=== PATIENT | female | born 1980 | race Caucasian/White ===

== ENCOUNTER 2017-02-22 15:39 | Observation (INO) ==
[2017-02-22] MEDS ORDERED: *HR* HYDROmorphone 2 MG/ML SYRINGE IVP ONE ×2 (16:17→17:12)
--- NOTE | 2017-02-22 16:21 | Emergency Department Note ---
Disposition Clinical Impression: Medication reaction, Metastatic breast cancer Intractable vomiting Qualifiers: Vomiting type: unspecified Nausea presence: with nausea Qualified Code(s): R11.2 - Nausea with vomiting, unspecified Disposition: Admitted As Inpatient Condition: Good Referrals: Bandar Love MD [Primary Care Provider] - Forms: ED Satisfaction Letter Time of Disposition: 19:07 Nausea/Vomiting/Diarrhea HPI - General Chief complaint: ED Nausea/Vomiting/Diarrhea Stated complaint: worsening pain/nausea /cancer pt Time Seen by Provider: 02/22/17 16:15 Source: EMS Mode of arrival: EMS Limitations: no limitations Nursing Notes Reviewed: Yes Vital Signs Reviewed: Yes - History of Present Illness HPI Narrative: 36-year-old white female with metastatic breast cancer who received chemotherapy 2 days ago. Following her chemotherapy she developed diffuse pain , nausea, and vomiting. She had a similar reaction with her previous chemotherapy. She was seen at [facility] emergency department yesterday. She was treated for her pain and nausea. She was discharged home after her symptoms were improved. She states after going back home her symptoms worsened again. She states the Zofran is not helping with her nausea. She has a headache. She has a history of similar type headaches. She has intractable nausea, but no abdominal pain. She has diffuse body aches. Pt Subjective Complaint: nausea, vomiting, other (Body aches) Onset (ago): day(s) (2) Description of emesis: food contents (Numerous) Associated Abdominal Pain: No Context: other (Chemotherapy) Associated symptoms: Reports: headaches - Related Data Home Medications Medication Instructions Recorded Confirmed lamoTRIgine [Lamictal] 250 mg PO DAILY 05/13/15 02/22/17 valACYclovir [Valtrex] 500 mg PO DAILY PRN 05/18/16 02/22/17 Promethazine [Phenergan] 25 mg RC Q6HR PRN 06/09/16 02/22/17 Diphenoxylate/Atropine [Lomotil 1 - 2 tab PO QID PRN 10/04/16 02/22/17 2.5 mg/0.025 mg] Lisdexamfetamine Dimesylate 60 mg PO DAILY 12/04/16 02/22/17 [Vyvanse] Topiramate [Topamax] 50 mg PO HS 12/04/16 02/22/17 clonazePAM [Clonazepam] 1 mg PO BID 12/04/16 02/22/17 HYDROmorphone [Dilaudid] 4 mg PO Q3H PRN 12/16/16 02/22/17 Acyclovir [Zovirax] 400 mg PO BID 01/20/17 02/22/17 OLANZapine [Zyprexa] 5 mg PO BID PRN 01/20/17 02/22/17 Omeprazole [PriLOSEC] 40 mg PO DAILY 01/20/17 02/22/17 Dexamethasone 2 mg PO AD 01/31/17 02/22/17 Loperamide HCl [Anti-Diarrheal] 2 mg PO Q2H PRN 01/31/17 02/22/17 Previous Rx's Medication Instructions Recorded Albuterol Sulfate [Albuterol 2 puff IH Q6HR PRN #1 inhaler 08/01/16 Inhaler] SUMAtriptan Succinate [Imitrex] 100 mg PO AD PRN #9 tablet 09/23/16 Loratadine [Claritin] 10 mg PO DAILY #30 tablet 09/26/16 Oxycodone HCl [Roxicodone 30 MG 30 mg PO Q4H PRN #150 tab 10/07/16 Immed Release] Sucralfate [Carafate] 1 gm PO TID #90 tablet 10/07/16 Furosemide [Lasix] 20 mg PO DAILY #3 tablet 12/16/16 Allergies Allergy/AdvReac Type Severity Reaction Status Date / Time vancomycin Allergy Intermediate Rash Verified 02/21/17 10:12 aspirin Allergy Palpitation Verified 02/21/17 10:12 s hydrocodone Allergy Itching Verified 02/21/17 10:12 Iodinated Contrast Media - Allergy Swelling Verified 02/21/17 10:12 Oral and of Lip/Tongue/Throat meperidine [From Demerol] Allergy Swelling Verified 02/21/17 10:12 of Lip/Tongue/Throat prochlorperazine Allergy Palpitation Verified 02/21/17 10:12 [From Compazine] s Trillinex Allergy Seizure Uncoded 02/21/17 10:12 All systems ED: reviewed and negative except as stated. Constitutional: Denies: fever, chills Eyes: Denies: vision change ENT ED: Denies: ear pain, throat pain Cardiovascular: Denies: chest pain Respiratory: Denies: cough, dyspnea Gastrointestinal: Reports: nausea, vomiting. Denies: abdominal pain, diarrhea Genitourinary: Denies: urgency, dysuria, frequency Musculoskeletal: Reports: as per HPI (Aching all over) Neurological: Reports: headache. Denies: weakness, numbness, paresthesias Past Medical History - Past Medical History Medical history: Reports: arthritis, asthma, cancer, GERD, kidney stones, malignancy, migraine, seizures, syncope, other Surgical history: Reports: appendectomy, breast surgery (Bilateral mastectomies. ), cancer surgery, ureteral stent, other Psychiatric history: Reports: anxiety, ADHD, bipolar, depression, other MOTORCYCLE TECHNICIAN history: Reports: no MOTORCYCLE TECHNICIAN history - Social History Smoking Status: Current every day smoker Smokeless Tobacco Status: No Alcohol use: Reports: none Drug use: Reports: none Physical Exam - General Limitations: no limitations General appearance: alert, in no apparent distress - Head Head exam: atraumatic, normocephalic - Eye Eye exam: Present: PERRL, EOMI. Absent: scleral icterus, conjunctival injection - ENT ENT exam: normal oropharynx, mucous membranes moist, TM's normal bilaterally - Neck Neck exam: Present: normal inspection, full ROM, trachea midline. Absent: tenderness, meningismus, lymphadenopathy - Respiratory Respiratory exam: Present: normal lung sounds bilaterally. Absent: respiratory distress, wheezes - Cardiovascular Cardiovascular exam: Present: regular rate, normal rhythm, normal heart sounds - Abdominal Exam Abdominal exam: Present: soft, Non-Tender, normal bowel sounds. Absent: organomegaly, mass - Extremities Exam Extremities exam: Present: normal inspection, full ROM, normal capillary refill. Absent: tenderness, pedal edema - Back Exam Back exam: Absent: CVA tenderness (R), CVA tenderness (L) - Neurological Exam Neurological exam: Present: alert, oriented X3, CN II-XII intact. Absent: motor sensory deficit - Psychiatric Psychiatric exam: Present: anxious - Skin Skin exam: Present: warm, dry, intact, normal color. Absent: cyanosis, diaphoresis Course - Reevaluation(s) Reevaluation #1: States pain and nausea are no better. Time: 17:13 Reevaluation #2: Nausea is improved. Pain is slightly improved. We discussed treatment options. She feels uncomfortable going home. She would prefer to be admitted here. She does not want to be transferred to possible. I spoke with Dr. Piedra. He is okay with observation admission here. Time: 19:06 Vital Signs Temperature 98.1 F 02/22/17 15:44 Pulse Rate 83 02/22/17 15:44 Respiratory Rate 18 02/22/17 15:44 Blood Pressure 107/48 02/22/17 15:44 O2 Sat by Pulse Oximetry 100 02/22/17 15:44 Temperature 98.1 F 02/22/17 15:44 Pulse Rate 90 02/22/17 17:37 Respiratory Rate 18 02/22/17 17:37 Blood Pressure 123/77 02/22/17 17:37 O2 Sat by Pulse Oximetry 99 02/22/17 17:37 Oxygen Delivery Oxygen Delivery Room Air Nausea/Vomiting/Diarrhea - MDM Narrative Medical decision making narrative: Differential includes but is not limited to medication reaction, viral syndrome , bacterial infection, dehydration. The patient has had a similar reaction in the past her chemotherapy. She is improved but does not feel comfortable being discharged. She will require short -term stay for continued control of her nausea, vomiting, and diffuse pain. She would prefer to be admitted here if possible. I spoke with Dr. Piedra. He is willing to accept the patient for observation admission here at [facility]. - Lab Data Lab results reviewed: Yes I reviewed the patient's lab results. Result diagrams: 02/22/17 16:15 02/22/17 16:15 Lab Results 02/22/17 02/22/17 Range/Units 16:15 16:15 WBC 9.9 (4.3-11.1) K/mcL RBC 3.63 L (3.82-4.97) M/mcL Hgb 11.0 L (11.5-15.4) g/dL Hct 34.0 L (35.3-44.9) % MCV 93.7 (83.0-100.0) fL MCH 30.3 (28.0-33.3) pg MCHC 32.4 (31.6-35.5) g/dL RDW 14.1 (11.5-14.5) % Plt Count 416 H (140-400) K/mcL MPV 9.0 L (9.4-12.4) fL Immature Gran % 0.8 (0-4) % Seg Neutrophils % 51.0 % Lymphocytes % 36.7 % Monocytes % 9.3 % Eosinophils % 1.7 % Basophils % 0.5 % Neutrophils # 5.1 (1.6-8.9) K/mcL Lymphocytes # 3.6 (0.6-4.6) K/mcL Monocytes # 0.9 (0.0-1.3) K/mcL Eosinophils # 0.2 (0.0-0.6) K/mcL Basophils # 0.1 (0.0-0.2) K/mcL Sodium 141 (136-145) mEq/L Potassium 4.0 (3.5-4.5) mEq/L Chloride 110 H (98-109) mEq/L Carbon Dioxide 24 (19-29) mEq/L BUN 16 (7-20) mg/dL Creatinine 0.79 (0.57-1.11) mg/dL Est GFR ( Amer) > 60 (> 60) Est GFR (Non-Af Amer) > 60 (> 60) BUN/Creatinine Ratio 20 (6-26) Glucose 88 (70-99) mg/dL Calculated Osmolality 293 (280-300) Calcium 8.8 (8.6-10.8) mg/dL Total Bilirubin < 0.1 L (0.2-1.2) mg/dL AST 11 (5-34) Units/L ALT 9 (0-55) Units/L Alkaline Phosphatase 57 (38-126) Units/L Serum Total Protein 6.9 (6.0-8.3) g/dL Albumin 2.9 L (3.5-5.0) g/dL Globulin 4.0 H (2.4-3.5) g/dL Albumin/Globulin Ratio 0.7 L (1.1-2.2)
[2017-02-22 16:25] LABS: Basophils # 0.1 K/mcL (0.0-0.2); Basophils % 0.5 %; Eosinophils # 0.2 K/mcL (0.0-0.6); Eosinophils % 1.7 %; Immature Granulocytes % 0.8 % (0-4); Lymphocytes # 3.6 K/mcL (0.6-4.6); Lymphocytes % 36.7 %; Mean Corpuscular HGB Conc 32.4 g/dL (31.6-35.5); Mean Corpuscular Hemoglobin 30.3 pg (28.0-33.3); Mean Corpuscular Volume 93.7 fL (83.0-100.0); Monocytes # 0.9 K/mcL (0.0-1.3); Monocytes % 9.3 %; Neutrophils # 5.1 K/mcL (1.6-8.9); Platelet Count 416 K/mcL (140-400); Red Blood Count 3.63 M/mcL (3.82-4.97); Red Cell Distribution Width 14.1 % (11.5-14.5)
[2017-02-22] MEDS ORDERED: 0.9 % Sodium Chloride 1,000 ML IVC SCH ×2 (16:30→20:36)
[2017-02-22] MEDS ORDERED: SODIUM CHLORIDE 0.9% IVPB ONE (16:30)
[2017-02-22] MEDS ORDERED: PROMETHAZINE IVPB ONE (16:30)
[2017-02-22 16:40] LABS: Alanine Aminotransferase 9 Units/L (0-55); Albumin 2.9 g/dL (3.5-5.0); Albumin/Globulin Ratio 0.7 (1.1-2.2); Alkaline Phosphatase 57 Units/L (38-126); Aspartate Amino Transferase 11 Units/L (5-34); BUN/Creatinine Ratio 20 (6-26); Bilirubin,Total < 0.1 mg/dL (0.2-1.2); Blood Urea Nitrogen 16 mg/dL (7-20); Calcium 8.8 mg/dL (8.6-10.8); Carbon Dioxide 24 mEq/L (19-29); Chloride 110 mEq/L (98-109); Glucose 88 mg/dL (70-99); Osmolality,Calculated 293 (280-300); Sodium 141 mEq/L (136-145); Total Protein 6.9 g/dL (6.0-8.3); eGFR For African Americans > 60 (> 60); eGFR For Non-African Americans > 60 (> 60)
[2017-02-22] MEDS ORDERED: *HR* Promethazine 25 MG/ML VIAL IVP ONE (17:12)
[2017-02-22] MEDS ORDERED: *HR* HYDROmorphone (PF) 1 MG/ML SYRINGE IVP ONE (18:57)
[2017-02-22] MEDS ORDERED: Naloxone 0.4 MG/ML INJ IVP PRN (20:36)
[2017-02-22] MEDS ORDERED: *HR* HYDROmorphone 2 MG TABLET PO PRN (20:36)
[2017-02-22] MEDS ORDERED: OLANZapine 5 MG TAB.RAPDIS PO PRN (20:36)
[2017-02-22] MEDS ORDERED: SUMAtriptan succinate 50 MG TABLET PO PRN (20:36)
[2017-02-22] MEDS ORDERED: *HR* Promethazine 25 MG/ML VIAL IVP PRN (20:36)
[2017-02-22] MEDS ORDERED: *HR* OxyCODONE Immed Rel 15 MG TABLET PO PRN (20:36)
[2017-02-22] MEDS: *HR* LORazepam 2 MG/ML VIAL IVP PRN (22:38)
[2017-02-22] MEDS: *HR* HYDROmorphone (PF) 1 MG/ML SYRINGE IVP PRN (22:38)
[2017-02-22] MEDS: Acyclovir 200 MG CAPSULE PO SCH (22:39)
[2017-02-22] MEDS: Topiramate 25 MG TABLET PO SCH (22:39)
[2017-02-22] MEDS: clonazePAM 0.5 MG TABLET PO SCH (22:39)
[2017-02-22] MEDS: *HR* Promethazine 25 MG/ML VIAL IVP PRN (22:39)
[2017-02-22] MEDS: Sucralfate 1 GM TABLET PO SCH (22:39)
[2017-02-23] MEDS: 0.9 % Sodium Chloride 1,000 ML IVC SCH ×3 (01:02→15:43)
[2017-02-23] MEDS: *HR* HYDROmorphone (PF) 1 MG/ML SYRINGE IVP PRN ×6 (03:12→22:48)
[2017-02-23] MEDS: *HR* Promethazine 25 MG/ML VIAL IVP PRN ×6 (03:15→22:47)
[2017-02-23] MEDS ORDERED: *HR* FentaNYL PATCH 25 MCG PATCH TD SCH (08:30)
[2017-02-23] MEDS ORDERED: lamoTRIgine 100 MG TABLET PO SCH (09:00)
[2017-02-23] MEDS ORDERED: VYVANSE 60 MG PO SCH (09:00)
[2017-02-23] MEDS ORDERED: Furosemide 20 MG TABLET PO SCH (09:00)
[2017-02-23] MEDS ORDERED: Loratadine 10 MG TABLET PO SCH (09:00)
[2017-02-23] MEDS: clonazePAM 0.5 MG TABLET PO SCH ×2 (14:33→21:58)
[2017-02-23] MEDS: Sucralfate 1 GM TABLET PO SCH ×3 (14:33→21:58)
[2017-02-23] MEDS: Acyclovir 200 MG CAPSULE PO SCH ×2 (14:34→21:58)
--- NOTE | 2017-02-23 14:38 | Internal Med History&Physical ---
Date of Encounter: 02/23/17 Time of Encounter: 14:00 Assessment and Plan (1) Chemotherapy induced nausea and vomiting Current visit: No Status: Acute She has been given IV fluids with anti-emetics. I have added Duragesic patch because her complaints of pain. Anticipate discharge tomorrow Internal Medicine - H&P: HPI Chief complaint: Nausea and diffuse myalgia Admitted From: Home Plans for Post Hospital Care: Home History of present illness: Ms. Santa is a 36 year old female who came to the emergency room complaining of nausea with dry heaves and diffuse body pains following chemotherapy at [facility] on February 20. She reports it was the second chemotherapy treatment with the initial treatment 3 weeks ago resulting in similar side effects. She was evaluated in emergency room and admitted to [facility] floor for ongoing care needs. She was diagnosed with breast invasive ductal carcinoma fall. She underwent bilateral mastectomies and received chemotherapy which was not tolerated well. Her chemotherapy regimen was changed. She has known metastases to liver and lungs. She follows at [facility]. She has a diagnosis of anemia. She denies other malignancies. Past Med Surg Social Fam HX - Past Medical History Medical history: arthritis, asthma, cancer, GERD, kidney stones, malignancy, migraine, seizures, syncope, other Psychiatric history: anxiety, ADHD, bipolar, depression, other - Past Surgical History Surgical History: appendectomy, breast surgery, cancer surgery, ureteral stent, other - Social History Smoking Status: Current every day smoker Smokeless Tobacco Status: No Alcohol use: none Drug use: none - Family History Mother Adopted: No Living Status: Still Living Hx Family Cardiac Disorders: Yes (high b/p) Hx Family Respiratory Disorders: Yes (resp problems - sob) Internal Medicine - H&P: Meds lamoTRIgine [Lamictal] 250 mg PO DAILY 05/13/15 [History] valACYclovir [Valtrex] 500 mg PO DAILY PRN 05/18/16 [History] Promethazine [Phenergan] 25 mg RC Q6HR PRN 06/09/16 [History] Albuterol Sulfate [Albuterol Inhaler] 2 puff IH Q6HR PRN #1 inhaler 08/01/16 [Rx ] SUMAtriptan Succinate [Imitrex] 100 mg PO AD PRN #9 tablet 09/23/16 [Rx] Loratadine [Claritin] 10 mg PO DAILY #30 tablet 09/26/16 [Rx] Diphenoxylate/Atropine [Lomotil 2.5 mg/0.025 mg] 1 - 2 tab PO QID PRN 10/04/16 [ History] Oxycodone HCl [Roxicodone 30 MG Immed Release] 30 mg PO Q4H PRN #150 tab [Rx] Sucralfate [Carafate] 1 gm PO TID #90 tablet 10/07/16 [Rx] Lisdexamfetamine Dimesylate [Vyvanse] 60 mg PO DAILY 12/04/16 [History] Topiramate [Topamax] 50 mg PO HS 12/04/16 [History] clonazePAM [Clonazepam] 1 mg PO BID 12/04/16 [History] Furosemide [Lasix] 20 mg PO DAILY #3 tablet 12/16/16 [Rx] HYDROmorphone [Dilaudid] 4 mg PO Q3H PRN 12/16/16 [History] Acyclovir [Zovirax] 400 mg PO BID 01/20/17 [History] OLANZapine [Zyprexa] 5 mg PO BID PRN 01/20/17 [History] Omeprazole [PriLOSEC] 40 mg PO DAILY 01/20/17 [History] Dexamethasone 2 mg PO AD 01/31/17 [History] Loperamide HCl [Anti-Diarrheal] 2 mg PO Q2H PRN 01/31/17 [History] Allergies vancomycin Allergy (Intermediate, Verified 02/21/17 10:12) Rash aspirin Allergy (Verified 02/21/17 10:12) Palpitations hydrocodone Allergy (Verified 02/21/17 10:12) Itching Iodinated Contrast Media - Oral and Allergy (Verified 02/21/17 10:12) Swelling of Lip/Tongue/Throat meperidine [From Demerol] Allergy (Verified 02/21/17 10:12) Swelling of Lip/Tongue/Throat prochlorperazine [From Compazine] Allergy (Verified 02/21/17 10:12) Palpitations Trillinex Allergy (Uncoded 02/21/17 10:12) Seizure All Systems PM: A 10-system review of systems was performed and is negative for pertinent findings except as documented above in the HPI. Review of systems: Gen.: She states her weight has been stable past few months Cardiovascular: She denies hypertension VT heart failure angina DVT or pulmonary embolus Respiratory: She has smoked since age 24 up to 1 pack per day. She does not have known chronic lung disease GI: She denies disorders of her liver gallbladder attacks or exocrine pancreas : She has had kidney stones in the past. She denies other kidney or bladder disorders Neurologic: She has history of seizures, type unknown. Her last seizure was rocks moderately one month ago. She has migraine headaches. She has neuropathy from chemotherapy. She denies large distribution strokes. Endocrine: She denies diabetes thyroid disease or hyperlipidemia Hematology/oncology: As per history of present illness Psychiatric: She has bipolar disorder and follows at mental health clinic [place] skeletal: She denies arthritis gout or other bone joint or muscle disorders. - Constitutional Vitals: Temp Pulse Resp BP Pulse Ox 98.3 F 76 14 103/63 97 02/23/17 11:12 02/23/17 11:12 02/23/17 11:12 02/23/17 11:12 02/23/17 11:12 Exam: Gen.: She is a well-developed well-nourished female who appears in no severe distress at present time HEENT: Head is atraumatic and normocephalic. Eyes: EOMI. There is no scleral icterus. Mouth: Mucosa is moist. Neck: Supple and nontender. There is no thyromegaly or adenopathy noted. Heart: Regular without murmurs gallops or ectopics. Lungs: No wheezes or crackles are heard. Abdomen: Soft and nontender. No masses or guarding are noted. Extremities: There is no cyanosis edema or clubbing noted. Dorsalis pedis and posttibial pulses are 1-2 over 2 bilaterally. Neurologic: Mental status: She is talkative and a good historian. Cranial nerves: Smile is symmetric. Forehead wrinkles bilaterally. Tongue protrudes midline. EOMI. Motor: There is no pronator drift. Cerebellar: Finger to nose is intact bilaterally. Skin: Warm and dry Internal Med - H&P Results - Labs CBC & Chem 7: 02/22/17 16:15 02/22/17 16:15
[2017-02-23] MEDS: *HR* LORazepam 2 MG/ML VIAL IVP PRN ×3 (14:59→22:48)
[2017-02-23] MEDS: Topiramate 25 MG TABLET PO SCH (21:58)
[2017-02-24] MEDS: *HR* HYDROmorphone (PF) 1 MG/ML SYRINGE IVP PRN ×3 (03:14→11:26)
[2017-02-24] MEDS: *HR* Promethazine 25 MG/ML VIAL IVP PRN ×3 (03:15→11:26)
[2017-02-24] MEDS: 0.9 % Sodium Chloride 1,000 ML IVC SCH (03:21)
[2017-02-24] MEDS: *HR* LORazepam 2 MG/ML VIAL IVP PRN ×2 (03:22→07:54)
[2017-02-24 06:08] LABS: Basophils % 0.5 %; Eosinophils # 0.2 K/mcL (0.0-0.6); Hematocrit 32.1 % (35.3-44.9); Hemoglobin 10.5 g/dL (11.5-15.4); Immature Granulocytes % 0.5 % (0-4); Lymphocytes # 2.9 K/mcL (0.6-4.6); Lymphocytes % 37.6 %; Mean Corpuscular HGB Conc 32.7 g/dL (31.6-35.5); Mean Corpuscular Hemoglobin 30.3 pg (28.0-33.3); Mean Corpuscular Volume 92.8 fL (83.0-100.0); Mean Platelet Volume 9.4 fL (9.4-12.4); Monocytes # 0.8 K/mcL (0.0-1.3); Monocytes % 9.9 %; Neutrophils # 3.8 K/mcL (1.6-8.9); Platelet Count 355 K/mcL (140-400); Red Blood Count 3.46 M/mcL (3.82-4.97); Red Cell Distribution Width 13.9 % (11.5-14.5); Segmented Neutrophils % 48.5 %
[2017-02-24] MEDS ORDERED: Sucralfate 1 GM TABLET PO SCH (08:30)
[2017-02-24 10:39] VITALS: BP 110/64
--- NOTE | 2017-02-24 10:42 | Discharge Summary ---
Date of Encounter: 02/24/17 Time of Encounter: 10:35 - Discharge Diagnosis (1) Chemotherapy induced nausea and vomiting Priority: Primary Status: Acute - Discharge Medications Prescriptions: FentaNYL PATCH [Duragesic] 25 mcg TD Q72H #2 patch.[id number] Home Medications: lamoTRIgine [Lamictal] 250 mg PO DAILY 05/13/15 [History] valACYclovir [Valtrex] 500 mg PO DAILY PRN 05/18/16 [History] Promethazine [Phenergan] 25 mg RC Q6HR PRN 06/09/16 [History] Albuterol Sulfate [Albuterol Inhaler] 2 puff IH Q6HR PRN #1 inhaler 08/01/16 [Rx ] SUMAtriptan Succinate [Imitrex] 100 mg PO AD PRN #9 tablet 09/23/16 [Rx] Loratadine [Claritin] 10 mg PO DAILY #30 tablet 09/26/16 [Rx] Diphenoxylate/Atropine [Lomotil 2.5 mg/0.025 mg] 1 - 2 tab PO QID PRN 10/04/16 [ History] Oxycodone HCl [Roxicodone 30 MG Immed Release] 30 mg PO Q4H PRN #150 tab [Rx] Sucralfate [Carafate] 1 gm PO TID #90 tablet 10/07/16 [Rx] Lisdexamfetamine Dimesylate [Vyvanse] 60 mg PO DAILY 12/04/16 [History] Topiramate [Topamax] 50 mg PO HS 12/04/16 [History] clonazePAM [Clonazepam] 1 mg PO BID 12/04/16 [History] Furosemide [Lasix] 20 mg PO DAILY #3 tablet 12/16/16 [Rx] HYDROmorphone [Dilaudid] 4 mg PO Q3H PRN 12/16/16 [History] Acyclovir [Zovirax] 400 mg PO BID 01/20/17 [History] OLANZapine [Zyprexa] 5 mg PO BID PRN 01/20/17 [History] Omeprazole [PriLOSEC] 40 mg PO DAILY 01/20/17 [History] Dexamethasone 2 mg PO AD 01/31/17 [History] Loperamide HCl [Anti-Diarrheal] 2 mg PO Q2H PRN 01/31/17 [History] FentaNYL PATCH [Duragesic] 25 mcg TD Q72H #2 patch.td72 02/24/17 [Rx] Allergies/Adverse Reactions: Allergies vancomycin Allergy (Intermediate, Verified 02/21/17 10:12) Rash aspirin Allergy (Verified 02/21/17 10:12) Palpitations hydrocodone Allergy (Verified 02/21/17 10:12) Itching Iodinated Contrast Media - Oral and Allergy (Verified 02/21/17 10:12) Swelling of Lip/Tongue/Throat meperidine [From Demerol] Allergy (Verified 02/21/17 10:12) Swelling of Lip/Tongue/Throat prochlorperazine [From Compazine] Allergy (Verified 02/21/17 10:12) Palpitations Trillinex Allergy (Uncoded 02/21/17 10:12) Seizure Date of admission: 02/22/17 20:16 Primary care physician: Bandar Love - Patient Status Disposition: Home, Self-Care Condition: Good Functional capacity at discharge: independent ambulation Overall status at discharge: patient is progressing back to baseline - Discharge Instructions Follow Up With: Bandar Love MD [Primary Care Provider] - 1 week - Diet and Activity Activity: resume usual activities as tolerated Diet: advance to your usual diet Hospital course: Ms. Santa is a 36 year old female who came to the emergency room complaining of nausea with dry heaves and diffuse body pains following chemotherapy at [facility] on February 20. She reports it was the second chemotherapy treatment with the initial treatment 3 weeks ago resulting in similar side effects. She was evaluated in emergency room and admitted to [facility] for ongoing care needs. Initial orders were written by the emergency room physician. I saw her on February 23 and performed the history and physical. She was given IV fluids and antibiotics. I added Duragesic patch because of her complaints of diffuse pain. This seemed to improve her pain level. She will be given 2 additional patches on prescription at discharge. Her vomiting subsided and she was able tolerate adequate amounts of food and fluid by the time I saw her on February 24. I felt she was stable for discharge home. She will follow with Dr. Page at [facility] next week as scheduled. - Time Spent with Patient Total time spent providing and/or coordinating discharge services: - Constitutional Vitals: Temp Pulse Resp BP Pulse Ox 97.8 F 72 16 110/64 98 02/24/17 10:27 02/24/17 10:27 02/24/17 10:27 02/24/17 10:27 02/24/17 10:27
== END 2017-02-24 11:50 | disposition home or self-care (01) ==
LOC: EMEROOPIK 15:39 → INPPIK 15:39
PROVIDERS: ADMIT Internal Medicine; ATTEND Internal Medicine